=== PATIENT | male | born 1995 | race Caucasian/White ===

== ENCOUNTER 2022-01-29 03:35 | Outpatient (CLI) | payer OTHER, SELFPAY ==
[2022-01-29 08:51] LABS: Hemoglobin A1C 5.1 % (<5.7)
[2022-01-29 09:03] LABS: Calculated LDL 108 mg/dL (<100); Cholesterol 192 mg/dL (<200); HDL Cholesterol 67 mg/dL (40-60); Triglyceride 88 mg/dL (<150)
== END 2022-01-29 03:36 | disposition home or self-care (01) ==
LOC: LBO 03:35
PROVIDERS: PCP Nurse Practitioner Family; Visit Provider Nurse Practitioner Family
DX: Z13.1 Encounter for screening for diabetes mellitus (principal); Z13.220 Encounter for screening for lipoid disorders
CPT/HCPCS: 36415; 80061; 83036

== ENCOUNTER 2025-10-18 19:46 | Emergency (ER) | payer OTHER, SELFPAY ==
[2025-10-18 19:51] VITALS: BP 120/74; PULSE 82; RESP 16; TEMP 36.9; O2SAT 98
[2025-10-18 19:55] VITALS: BP 120/74; PULSE 82; RESP 16; TEMP 36.9; O2SAT 98
--- NOTE | 2025-10-18 20:42 | DI.RAD_ITS ---
Exam(s) XR TIB/FIB RT EXAM: XR TIB/FIB RT CLINICAL HISTORY: dog bite. TECHNIQUE: 2D digital imaging was performed. Two views. COMPARISON: No exams were available for comparison FINDINGS: BONES: No acute fracture is present. No bony destructive lesion is seen. Visualized portion of knee and ankle joints are unremarkable. SOFT TISSUE: Normal. IMPRESSION: Unremarkable radiographs of the right tibia and fibula. The preliminary [facility] report was reviewed. DATA REPOSITORY: RADIATION DOSE DELIVERED:
[2025-10-18] MEDS: Amox. 875/Clav. 125, 2 TABS/BTL 1 TAB PO (20:48)
--- NOTE | 2025-10-18 20:58 | DI.[facility]_ITS ---
PROCEDURE INFORMATION: Exam: XR Right Tibia and Fibula Exam date and time: 10/18/2025 8:37 PM Age: 30 years old Clinical indication: Injury or trauma; Other: Dog bite; Work related; Injury date: 10/18/25 TECHNIQUE: Imaging protocol: Radiologic exam of the right tibia and fibula. Views: 2 views. COMPARISON: No relevant prior studies available. FINDINGS: Bones/joints: Normal. Soft tissues: Normal. IMPRESSION: No acute findings. Dictated and Authenticated by: Wei Alvarez MD. Orderin Angelina Patel MD
[2025-10-18 22:16] VITALS: PULSE 94; RESP 18; O2SAT 97
--- NOTE | 2025-10-18 22:27 | W.ED.GENAD ---
Discharge Plan Disposition Patient Disposition: Home Condition: Stable Discharge Details Clinical Impression: Dog bite Primary Care Provider: Zay Jones ED Provider: Amanda Alfaro Home Meds and New Rx's Prescriptions: New amoxicillin-pot clavulanate 875-125 mg tablet 1 tab PO BID Qty: 20 0RF Continued Inflectra 100 mg recon soln See Rx Instructions IV Q8W Qty: 1 0RF Rx Instructions: administer over 2 hrs IV every 8 weeks; administer over 2 hrs Discharge Instructions Instructions: Animal Bites ED Additional Instructions: If you are due for your Inflectra, I recommend holding for at least 10 days to allow this wound to heal Take the antibiotic as prescribed every 12 hours It is very important that you elevate your leg is much as possible and rest it, or it is in a dependent position such as standing for less likely able to heal You are at much higher risk of infection secondary to your history of Crohn's and immunosuppressive that you take If the wound becomes infected, we will have to remove the sutures The sutures will need to be removed in 12 to 14 days Recommend allowing the wound to air dry for several hours at home in the next 3 to 4 days Please keep covered when you are out and about Recommend keeping dry for at least 24 hours, after that you can shower but do not submerge in water. Take Tylenol as needed for pain Please return for fever, worsening pain I recommend taking 7 days off from work to rest and elevate Return immediately for spreading redness, purulent drainage Stand Alone Forms: Portal Information, Work Release Referrals: Zay Jones, SENIOR NET DEVELOPER ARCHITECT [Primary Care Provider, Medicine] HPI General Date/Time Provider Initiated Documentation: 10/18/25 20:05. 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 This occurred just prior to arrival. He believes his tetanus was updated this year. The template inspector gave the patient the dog's rabies vaccines and patient believes the dog is up-to-date on rabies vaccines. Patient states he has been able to ambulate with slight discomfort in the area. Patient denies any additional injuries Related Data Home Medications ?Medication ?Instructions ?Recorded ?Confirmed infliximab-dyyb 100 mg intravenous See Rx Instructions IV Q8W #1 ea 01/14/22 10/18/25 solution (Inflectra) amoxicillin 875 mg-potassium 1 tab PO BID #20 tabs 10/18/25 clavulanate 125 mg tablet Previous Rx's ?Medication ?Instructions ?Recorded infliximab-dyyb 100 mg intravenous See Rx Instructions IV Q8W #1 ea 01/14/22 solution (Inflectra) amoxicillin 875 mg-potassium 1 tab PO BID #20 tabs 10/18/25 clavulanate 125 mg tablet Allergies Allergy/AdvReac Type Severity Reaction Status Date / Time mold Allergy Unknown unknown Unverified 10/18/25 19:53 grass pollen AdvReac Unknown unknown Unverified 10/18/25 19:53 General Stated Complaint: AnimalBite JOHAN: 4 Exam Narrative Exam Narrative: Alert 30-year-old male in no acute distress, approximately 2 inch area of macerated tissue noted in gastrocnemius region on the left calf, patient has good plantarflexion of his foot strength and sensation are intact is able to ambulate without difficulty. There does not appear to be trauma to the actual gastrocnemius muscle but the wound is through the fascia. No obvious foreign body Course Vital Signs Vital signs: Vital Signs Temperature 36.9 C 10/18/25 19:51 Pulse 82 10/18/25 19:51 Respiratory Rate 16 10/18/25 19:51 Blood Pressure 120/74 10/18/25 19:51 Pulse Oximetry 98 10/18/25 19:51 Temperature 36.9 C 10/18/25 19:55 Pulse 94 H 10/18/25 22:16 Respiratory Rate 18 10/18/25 22:16 Blood Pressure 120/74 10/18/25 19:55 Pulse Oximetry 97 10/18/25 22:16 Pain Level 0 10/18/25 19:55 Procedure Laceration Laceration 1: Date of Procedure: 10/18/25 Time of procedure: 21:30 Patient Consented: Verbally Site: lower extremity Side (If applicable): left Description: flap and irregular Local anesthetic: Lidocaine 1% and with Epi Amount of anesthesia used (mL): 4 Pre-repair:: wound explored, irrigated extensively, deep structures intact and wound margins revised Skin layer closed with: other (prolene) Suture size: 4-0 Number of sutures:: 3 Technique: vertical mattress Medical Decision Making Results: Patient with x-ray tib-fib that shows soft tissue injury without obvious foreign body or injury to the bone. Assessment and plan: Patient's tetanus is up-to-date, we suspect the dog's rabies vaccines are up-to-date based on the rabies vaccination sheet, will send animal control out to confirm tomorrow and hold on rabies vaccines as dog is both able to be observed in a home and we have the actual rabies vaccination copy from the family. Patient was given a dose of Augmentin in the emergency department and will be prescribed Augmentin for the next 10 days. Typically I avoid suturing dog bites but secondary to the large area of involvement and depth of the wound, I think the benefit outweighs the risk of infection. Patient is comfortable with this plan and will take the Augmentin as prescribed. He is aware that he is immunosuppressed and that much greater risk of developing an infection from a dog bite. I have given him a note for 7 days off of work so that he can elevate the wound. Patient tolerated procedure without incident, 3 sutures were placed loosely approximated discussed to drain. Return precautions reviewed and patient expressed understanding. PFSH All Active Problems (Updated 10/18/25 @ 21:49 by RAUL Shields) Dog bite (Acute) Skin rash (Acute) Onychomycosis (Acute) Vitamin D deficiency (Acute ~11/08/15) Varicella (Acute) Vegetarianism (Acute) Not active Crohn's disease (Chronic) Every 8 weeks at [facility] infusions of Remicade. Ileocolonic Crohns Medical History (Updated 10/18/25 @ 21:49 by RAUL Shields) COVID Fracture of base of fifth metacarpal bone of left hand (~11/08/15) History of fracture of clavicle (~11/08/14) Surgical History (Updated 01/15/21 @ 15:02 by Mary Jones) H/O colonoscopy (~11/08/06) Family History (Updated 12/06/20 @ 09:13 by Carly Regalado) Mother No problems noted. Father No problems noted. Brother No problems noted. 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 Pets and animals: Yes Pets and animals: cat(s) Sexually active: Yes Do you think of yourself as: straight/heterosexual Current gender identity: male What is your relationship status?: living with partner How often do you talk on the phone with friends or family?: once per week How often do you get together with friends or relatives?: once per week How often do you attend jew or faith services?: decline to answer Do you belong to any clubs or organized social groups?: no Panel score (0-1 are the most socially isolated patients): 1 What type of physical activity do you participate in: weight lifting Duration: 30-45 minutes/day Frequency: 5-6 times per week Gilda/Temple: Non scientology Special gilda needs: No Seatbelt use: always Helmet use: Yes Helmet use: always Drive intox or ride w/intox street flusher driver: No Firearms in home: Yes Firearms unloaded and locked: Yes Do you feel safe at home: Yes Do you feel safe in your relationship?: Yes Victim of physical abuse: No Victim of emotional abuse: No Victim of sexual abuse: No Would you like helpful sources: No
--- NOTE | 2025-10-22 12:51 | NUR.NOTE ---
Animal bite report emailed to [facility] Clerk [email or web address]. Spoke with Ian Bass, states he does not do the animal bite the laboratory animal caretaker does. Kimberly Johnson, ; and also works at [employer]. Nursing Note:
== END 2025-10-18 22:17 | disposition home or self-care (01) ==
PROVIDERS: Emergency Provider Physician Assistant; PCP Nurse Practitioner Family
DX: S81.811A Laceration without foreign body, right lower leg, initial encounter (principal); W54.0XXA Bitten by dog, initial encounter
CPT/HCPCS: 99283 ×2; 12002; 73590

== ENCOUNTER 2025-10-23 09:05 | Emergency (ER) | payer OTHER, SELFPAY ==
[2025-10-23 09:09] VITALS: BP 134/84; PULSE 94; RESP 18; TEMP 36.6; O2SAT 98
--- NOTE | 2025-10-24 10:41 | ED.GENADUL_ITS ---
Discharge Plan Disposition Patient Disposition: Home Condition: Stable Discharge Details Clinical Impression: Dog bite, Laceration of calf Primary Care Provider: Zay Jones ED Provider: Amanda Alfaro Home Meds and New Rx's Prescriptions: Continued Inflectra 100 mg recon soln See Rx Instructions IV Q8W Qty: 1 0RF Rx Instructions: administer over 2 hrs IV every 8 weeks; administer over 2 hrs amoxicillin-pot clavulanate 875-125 mg tablet 1 tab PO BID Qty: 20 0RF Discharge Instructions Instructions: Animal and human bites, Taking care of cuts, scrapes, and puncture wounds Additional Instructions: Return on the and we can take your stitches out at that time Try to allow the wound to air dry is much as possible Try to avoid movements that cause pain such as full extension of your leg or lifting Please return with spreading redness, fever, worsening discomfort Stand Alone Forms: Portal Information, Work Release Referrals: Zay Jones, TIRE AND LUBE TECHNICIAN [Primary Care Provider, Medicine] Discharge Data Discharge Date/Time-TO BE ENTERED AT DEPARTURE: 10/23/25 10:51 HPI General Date/Time Provider Initiated Documentation: 10/23/25 09:10 . HPI Narrative: This 30-year-old male presents for reassessment of dog bite to right calf region. He states it still painful in this area but denies any fever or chills. He states with extension particularly the pain is worsened. He works for [employer] and was initially hoping for clearance back to work but he is concerned regarding the amount of pain he has when he uses his lower extremity muscles. H e has been compliant with antibiotics and denies any additional concerns at this time. Related Data Home Medications ?Medication ?Instructions ?Recorded ?Confirmed infliximab-dyyb 100 mg intravenous See Rx Instructions IV Q8W #1 ea 01/14/22 10/23/25 solution (Inflectra) amoxicillin 875 mg-potassium 1 tab PO BID #20 tabs 10/0210/23/25 clavulanate 125 mg tablet Previous Rx's ?Medication ?Instructions ?Recorded infliximab-dyyb 100 mg intravenous See Rx Instructions IV Q8W #1 ea 01/14/22 solution (Inflectra) amoxicillin 875 mg-potassium 1 tab PO BID #20 tabs 10/02 clavulanate 125 mg tablet Allergies Allergy/AdvReac Type Severity Reaction Status Date / Time mold Allergy Unknown unknown Unverified 10/23/25 09:11 grass pollen AdvReac Unknown unknown Unverified 10/23/25 09:11 General Stated Complaint: Recheck JOHAN: 4 Exam Narrative Exam Narrative: Laceration on posterior calf region approximately, no evidence of infection or wound dehiscence sutures remain in place no surrounding erythema Course Vital Signs Vital signs: Vital Signs Temperature 36.6 C 10/23/25 09:09 Pulse 94 H 10/23/25 09:09 Respiratory Rate 18 10/23/25 09:09 Blood Pressure 134/84 10/23/25 09:09 Pulse Oximetry 98 10/23/25 09:09 Temperature 36.6 C 10/23/25 09:09 Pulse 94 H 10/23/25 09:09 Respiratory Rate 18 10/23/25 09:09 Blood Pressure 134/84 10/23/25 09:09 Pulse Oximetry 98 10/23/25 09:09 Medical Decision Making Assessment and plan: At this time patient has discomfort with extension of his leg. I would like to pend return to work as patient has a very high impact position at [employer]. Working 12 hours a day will likely delayed healing and could potentially increase risk of infection. I will extend work note until the when patient may have sutures removed and wound reassessment with potential return to work at that time. No evidence of infection and wound appears to be healing well at time of my assessment neurovascularly intact PFSH All Active Problems (Updated 10/23/25 @ 09:25 by RAUL Shields) Laceration of calf (Acute) Dog bite (Acute) Dog bite (Acute) Skin rash (Acute) Onychomycosis (Acute) Vitamin D deficiency (Acute ~11/08/15) Varicella (Acute) Vegetarianism (Acute) Not active Crohn's disease (Chronic) Every 8 weeks at [facility] infusions of Remicade. Ileocolonic Crohns Medical History (Updated 10/23/25 @ 09:25 by RAUL Shields) COVID Fracture of base of fifth metacarpal bone of left hand (~11/08/15) History of fracture of clavicle (~11/08/14) Surgical History (Updated 01/15/21 @ 15:02 by Mary Jones) H/O colonoscopy (~11/08/06) Family History (Updated 12/06/20 @ 09:13 by Carly Regalado) Mother No problems noted. Father No problems noted. Brother No problems noted. 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 Pets and animals: Yes Pets and animals: cat(s) Sexually active: Yes Do you think of yourself as: straight/heterosexual Current gender identity: male What is your relationship status?: living with partner How often do you talk on the phone with friends or family?: once per week How often do you get together with friends or relatives?: once per week How often do you attend congregational or pentecostal services?: decline to answer Do you belong to any clubs or organized social groups?: no Panel score (0-1 are the most socially isolated patients): 1 What type of physical activity do you participate in: weight lifting Duration: 30-45 minutes/day Frequency: 5-6 times per week Gilda/Congregation: Non rastafarian Special gilda needs: No Seatbelt use: always Helmet use: Yes Helmet use: always Drive intox or ride w/intox otr refrigerated cdl truck driver: No Firearms in home: Yes Firearms unloaded and locked: Yes Do you feel safe at home: Yes Do you feel safe in your relationship?: Yes Victim of physical abuse: No Victim of emotional abuse: No Victim of sexual abuse: No Would you like helpful sources: No
== END 2025-10-23 10:51 | disposition home or self-care (01) ==
LOC: ER 09:37
PROVIDERS: Emergency Provider Physician Assistant; PCP Nurse Practitioner Family
DX: S81.811D Laceration without foreign body, right lower leg, subsequent encounter (principal); W54.0XXD Bitten by dog, subsequent encounter
CPT/HCPCS: 99282